=== PATIENT | male | born 1975 | race Caucasian/White ===

== ENCOUNTER → 2017-01-08 | Outpatient (REF) | LOC: WSOH 08:00 | DX: Z02.89 Encounter for other administrative examinations (principal) ==

== ENCOUNTER 2017-08-13 12:49 | Inpatient (IN) | payer BC ==
[~2017-08-13] VITALS: Ht 182.9 cm; Wt 103.5 kg
[2017-08-28] VITALS (10 sets, daily range): BP systolic 111–141; BP diastolic 70–96; PULSE 87–116; TEMP 97.7–98.9
[2017-08-28] MEDS ORDERED: DILTIAZEM 180 MG PO (11:40)
[2017-08-28] MEDS ORDERED: MASON NATURAL2000 IU PO (12:04)
[2017-08-29 01:46] VITALS: BP 120/66; PULSE 106; TEMP 98.2
[2017-08-29 05:31] VITALS: BP 113/64; PULSE 101; PULSE 114; TEMP 98.5
[2017-08-29 06:30] LABS: HEMOGLOBIN 14.2 g/dl (13.5-18.0)
[2017-08-29 06:46] LABS: CREATININE, serum 0.96 mg/dL (0.66-1.25); POTASSIUM 4.2 mmol/L (3.4-5.0)
[2017-08-29] MEDS ORDERED: CARDIZEM CD 18180 MG PO (08:30)
[2017-08-29 09:29] VITALS: BP 103/56; PULSE 113; TEMP 98
[2017-08-29 13:17] VITALS: BP 106/63; PULSE 114; TEMP 98.6
[2017-08-29 18:02] VITALS: BP 108/66; PULSE 103; TEMP 98.2
[2017-08-29 22:46] VITALS: BP 114/66; PULSE 108; TEMP 98.3
[2017-08-30 05:07] VITALS: BP 101/56; PULSE 103; TEMP 97.8
[2017-08-30 08:30] VITALS: BP 120/75; PULSE 101; TEMP 97.8
[2017-08-30 12:12] VITALS: BP 117/79; PULSE 102; TEMP 98.2
[2017-08-30] MEDS ORDERED: ROXICODONE 55 MG/TAB PO (15:00)
== END 2017-08-30 15:30 | disposition home or self-care (01) | DRG 331 ==
LOC: INPTSU 08-28 09:56 → SURG 08-28 13:30
PROVIDERS: Surgery
PROC: 8E0W4CZ Robotic Assisted Procedure of Trunk Region, Percutaneous Endoscopic Approach (ICD-10-PCS; 2017-08-28)
PROC: 0DTN4ZZ Resection of Sigmoid Colon, Percutaneous Endoscopic Approach (ICD-10-PCS; principal; 2017-08-28 13:30)
DX: K57.32 Diverticulitis of large intestine without perforation or abscess without bleeding (principal); Z85.72 Personal history of non-Hodgkin lymphomas
CPT/HCPCS: A4314; A9284; J0330; J0690; J1170; J1650; J1885; J2405; J2704; J2710; J2765; J3010; J7042; J7120

== ENCOUNTER → 2017-11-17 | Outpatient (CLI) | payer BC ==
[~2017-11-17] MED LIST: CARDIZEM CD 18180 MG PO; DILTIAZEM 180 MG PO; MASON NATURAL2000 IU PO; ROXICODONE 55 MG/TAB PO
[2017-11-17 15:08] LABS: SYNOVIAL FL. MONONUCLEAR 8.1 % (0-75); SYNOVIAL FLUID RBC 266000 /mm3 (0-0); SYNOVIAL FLUID WBC 141163 /mm3 (200-600)
[2017-11-17 17:11] LABS: SYNOVIAL FLUID APPEARANCE TURBID; SYNOVIAL FLUID COLOR PINK
== END ==
LOC: ZCOL.LAB 14:19
PROVIDERS: Physician Assistant
DX: S89.81XA Other specified injuries of right lower leg, initial encounter (principal)

== ENCOUNTER 2017-11-18 08:10 | Day surgery (SDC) | payer BC ==
[2017-11-18] VITALS (11 sets, daily range): BP systolic 100–121; BP diastolic 66–83; PULSE 70–111; TEMP 97.5–98.1
[~2017-11-18] VITALS: Ht 182.9 cm; Wt 98.8 kg
[2017-11-19 02:02] VITALS: BP 127/45; PULSE 89; TEMP 98.2
[2017-11-19 05:44] VITALS: BP 135/77; PULSE 100; TEMP 98
[2017-11-19 07:22] VITALS: BP 118/74; PULSE 98; TEMP 98.1
[2017-11-19 11:15] VITALS: BP 118/75; PULSE 111; TEMP 97.5
[2017-11-19] MEDS ORDERED: NORCO 325 MG-51 TAB PO (12:55)
[2017-11-19] MEDS ORDERED: BACTRIM DS 8001 TAB PO (12:55)
[2017-11-19] MEDS ORDERED: MONODOX100 PO (12:56)
== END 2017-11-19 14:12 | disposition home or self-care (01) ==
LOC: SDCO 08:10 → SURG 12:40 → SDCO 11-19 14:12
DX: M71.162 Other infective bursitis, left knee (principal); Z85.72 Personal history of non-Hodgkin lymphomas; Z87.891 Personal history of nicotine dependence; Z68.29 Body mass index [BMI] 29.0-29.9, adult; Z88.0 Allergy status to penicillin; Z88.8 Allergy status to other drugs, medicaments and biological substances; Z92.21 Personal history of antineoplastic chemotherapy
CPT/HCPCS: OP; J0690; J1100; J1170; J2405; J2704; J3010; J7120

== ENCOUNTER 2018-06-06 18:53 | Emergency (ER) | payer BC ==
[~2018-06-06] VITALS: Ht 182.9 cm; Wt 106.8 kg
[~2018-06-06 18:53] MED LIST changes: +BACTRIM DS 8001 TAB PO; +MONODOX100 PO; +NORCO 325 MG-51 TAB PO
[2018-06-06 19:08] VITALS: TEMP 98.8
[2018-06-06 19:56] LABS: BASO % 0.4 % (0.0-2.0); EOS % 0.5 % (0-4.0); GRAN # 5.3 (1.4-6.5); GRAN % 71.5 % (42.2-75.2); HEMATOCRIT 44.9 % (42.0-52.0); HEMOGLOBIN 15.5 g/dl (13.5-18.0); LYMPH # 1.4 (1.2-3.4); LYMPH % 19.1 % (20.0-51.0); MEAN CELL VOLUME 78 fl (80.0-100.0); MEAN CORPUSCULAR HEMOGLOBIN 27 pg (27.0-31.0); MEAN CORPUSCULAR HGB CONC 35 g/dl (33.0-37.0); MEAN PLATELET VOLUME 12.2 fl (7.4-10.4); MONO # 0.6 (0.1-0.6); MONO % 8.1 % (1.7-9.3); PLATELET COUNT 155 K/mm3 (130-400); RED BLOOD COUNT 5.74 M/mm3 (4.20-5.60); REDCELL DISTRIBUTION WIDTH-CV 12.5 % (11.5-14.5)
[2018-06-06 20:15] LABS: ALANINE AMINOTRANSFERASE 52 U/L (21-72); ALBUMIN 4.2 gm/dL (3.5-5.0); ALKALINE PHOSPHATASE 69 U/L (50-136); ANION GAP 13 mmol/L (7-16); AST,SGOT 47 U/L (15-37); BLOOD UREA NITROGEN 13 mg/dL (9-20); CALCIUM 9.1 mg/dL (8.4-10.2); CARBON DIOXIDE 23 mmol/L (22-30); CHLORIDE 104 mmol/L (98-107); CREATININE, serum 0.97 mg/dL (0.66-1.25); GLUCOSE 93 mg/dL (74-106); LIPASE 150 U/L (23-300); POTASSIUM 3.6 mmol/L (3.4-5.0); SODIUM 140 mmol/L (137-145); TOTAL PROTEIN 7.3 gm/dL (6.4-8.2)
[2018-06-06 20:26] LABS: TROPONIN-I < 0.012 ng/mL (0.000-0.034)
[2018-06-06] MEDS ORDERED: LOPRESSOR 225 MG/TAB PO (20:48)
[2018-06-06] MEDS ORDERED: ATIVAN 0.50.5 MG/TAB PO (20:48)
[2018-06-06] MEDS ORDERED: PROTONIX 40MG T40 MG PO (20:48)
[2018-06-06 20:57] VITALS: BP 122/85; PULSE 95
== END 2018-06-06 21:40 | disposition home or self-care (01) ==
LOC: COL.ER 18:53
PROVIDERS: Emergency Medicine
DX: F41.9 Anxiety disorder, unspecified (principal); R00.2 Palpitations; K21.9 Gastro-esophageal reflux disease without esophagitis

== ENCOUNTER 2018-06-25 07:09 | Day surgery (SDC) | payer BC ==
[2018-06-25] VITALS (11 sets, daily range): BP systolic 92–124; BP diastolic 42–76; PULSE 80–101; TEMP 97
[~2018-06-25] VITALS: Ht 183 cm; Wt 101.6 kg
[~2018-06-25 07:09] MED LIST changes: +ATIVAN 0.50.5 MG/TAB PO; +LOPRESSOR 225 MG/TAB PO; +PROTONIX 40MG T40 MG PO
[2018-06-25] MEDS ORDERED: ATIVAN 0.50.5 MG/TAB PO (07:48)
[2018-06-25] MEDS ORDERED: PROTONIX 40MG T40 MG PO (07:50)
[2018-06-25] MEDS ORDERED: ASPIRIN E.C. 8181 MG PO (07:51)
[2018-06-25] MEDS ORDERED: LOPRESSOR 225 MG/TAB PO (07:51)
[2018-06-25] MEDS ORDERED: NITROSTAT0.4 MG/TAB SL (07:52)
[2018-06-25 08:20] LABS: HEMATOCRIT 46.8 % (42.0-52.0); HEMOGLOBIN 15.8 g/dl (13.5-18.0); MEAN CELL VOLUME 79 fl (80.0-100.0); MEAN CORPUSCULAR HEMOGLOBIN 27 pg (27.0-31.0); MEAN CORPUSCULAR HGB CONC 34 g/dl (33.0-37.0); PLATELET COUNT 147 K/mm3 (130-400); RED BLOOD COUNT 5.94 M/mm3 (4.20-5.60); REDCELL DISTRIBUTION WIDTH-CV 12.3 % (11.5-14.5)
[2018-06-25 08:24] LABS: INR 1.1 (0.8-3.0); PROTHROMBIN TIME 12.6 SECONDS (9.7-12.8)
[2018-06-25 08:30] LABS: CALCIUM 9.5 mg/dL (8.4-10.2); CREATININE, serum 0.98 mg/dL (0.66-1.25); POTASSIUM 4.1 mmol/L (3.4-5.0)
[2018-06-25] MEDS ORDERED: TOPROL XL 50MG50 MG PO (11:45)
== END 2018-06-25 13:50 | disposition home or self-care (01) ==
LOC: COL.CAR 07:09
PROVIDERS: Internal Medicine Cardiovascular Disease
DX: I25.10 Atherosclerotic heart disease of native coronary artery without angina pectoris (principal); R94.39 Abnormal result of other cardiovascular function study; I34.0 Nonrheumatic mitral (valve) insufficiency; E78.2 Mixed hyperlipidemia; I42.8 Other cardiomyopathies; F41.8 Other specified anxiety disorders; Z85.72 Personal history of non-Hodgkin lymphomas; Z92.21 Personal history of antineoplastic chemotherapy; Z92.3 Personal history of irradiation; Z88.8 Allergy status to other drugs, medicaments and biological substances; Z88.0 Allergy status to penicillin; Z82.49 Family history of ischemic heart disease and other diseases of the circulatory system; Z83.3 Family history of diabetes mellitus
CPT/HCPCS: C1769; J1644; J2250; J3010; Q9967

== ENCOUNTER 2019-03-19 04:24 | Emergency (ER) | payer BC ==
[~2019-03-19] VITALS: Ht 182.9 cm; Wt 90.9 kg
[~2019-03-19 04:24] MED LIST changes: +ASPIRIN E.C. 8181 MG PO; +NITROSTAT0.4 MG/TAB SL; +TOPROL XL 50MG50 MG PO
[2019-03-19 04:47] VITALS: TEMP 97.6
[2019-03-19 04:58] LABS: BASO # 0.1 (0.0-0.2); BASO % 0.8 % (0.0-2.0); EOS # 0.2 (0.0-0.7); EOS % 1.5 % (0-4.0); GRAN # 6.8 (1.4-6.5); GRAN % 62.2 % (42.2-75.2); HEMATOCRIT 47.1 % (42.0-52.0); HEMOGLOBIN 15.6 g/dl (13.5-18.0); LYMPH # 2.4 (1.2-3.4); LYMPH % 21.9 % (20.0-51.0); MEAN CELL VOLUME 77 fl (80.0-100.0); MEAN CORPUSCULAR HEMOGLOBIN 25 pg (27.0-31.0); MEAN CORPUSCULAR HGB CONC 33 g/dl (33.0-37.0); MEAN PLATELET VOLUME 12.5 fl (7.4-10.4); MONO # 1.4 (0.1-0.6); PLATELET COUNT 206 K/mm3 (130-400); RED BLOOD COUNT 6.15 M/mm3 (4.20-5.60); REDCELL DISTRIBUTION WIDTH-CV 13.1 % (11.5-14.5)
[2019-03-19 05:06] LABS: ALANINE AMINOTRANSFERASE 86 U/L (21-72); ALBUMIN 4.7 gm/dL (3.5-5.0); ALKALINE PHOSPHATASE 100 U/L (50-136); ANION GAP 14 mmol/L (7-16); AST,SGOT 51 U/L (15-37); BILIRUBIN,TOTAL 0.7 mg/dL (0.0-1.0); BLOOD UREA NITROGEN 20 mg/dL (9-20); CALCIUM 9.7 mg/dL (8.4-10.2); CARBON DIOXIDE 28 mmol/L (22-30); CHLORIDE 98 mmol/L (98-107); CREATININE, serum 1.13 (0.66-1.25); GLUCOSE 138 mg/dL (74-106); LIPASE 491 U/L (23-300); POTASSIUM 3.6 mmol/L (3.4-5.0); SODIUM 140 mmol/L (137-145); TOTAL PROTEIN 8.3 gm/dL (6.4-8.2)
[2019-03-19 05:08] LABS: C-REACTIVE PROTEIN < 0.5 mg/dL (0.0-0.9)
[2019-03-19] MEDS ORDERED: COREG 3.123.125 MG/T PO (05:40)
[2019-03-19] MEDS ORDERED: SINGULAIR 110 MG/TAB PO (05:41)
[2019-03-19] MEDS ORDERED: ALDACTONE 25MG25 M1 PO (05:41)
[2019-03-19] MEDS ORDERED: K-DUR20 MEQ PO (05:41)
[2019-03-19] MEDS ORDERED: DEMADEX 20MG20 M1 PO (05:41)
[2019-03-19] MEDS ORDERED: LANOXIN 0.25M0.25 MG PO (05:42)
[2019-03-19] MEDS ORDERED: ZOLOFT 50MG50 MG PO (05:42)
[2019-03-19 07:11] VITALS: BP 102/75; PULSE 93
== END 2019-03-19 07:31 | disposition home or self-care (01) ==
LOC: COL.ER 04:24
PROVIDERS: Emergency Medicine
DX: R10.10 Upper abdominal pain, unspecified (principal); I50.9 Heart failure, unspecified; R11.10 Vomiting, unspecified; Z87.891 Personal history of nicotine dependence; Z85.72 Personal history of non-Hodgkin lymphomas; Z79.82 Long term (current) use of aspirin
CPT/HCPCS: J2270; J2405; Q9967

== ENCOUNTER → 2019-03-26 | Outpatient (CLI) | payer BC ==
[~2019-03-26] MED LIST changes: +ALDACTONE 25MG25 M1 PO; +COREG 3.123.125 MG/T PO; +DEMADEX 20MG20 M1 PO; +K-DUR20 MEQ PO; +LANOXIN 0.25M0.25 MG PO; +SINGULAIR 110 MG/TAB PO; +ZOLOFT 50MG50 MG PO
== END ==
LOC: COL.RAD 03-25 10:30
DX: K76.0 Fatty (change of) liver, not elsewhere classified (principal)

== ENCOUNTER → 2019-05-28 | Outpatient (CLI) | payer BC ==
[~2019-05-28] MED LIST changes: +TYLENOL 500MG500 MG PO
== END ==
LOC: COL.RAD 08:17
DX: K82.0 Obstruction of gallbladder (principal); K81.9 Cholecystitis, unspecified
CPT/HCPCS: A9537; J2270

== ENCOUNTER 2021-07-21 21:11 | Observation (INO) | payer BC ==
[~2021-07-21] VITALS: Ht 182.9 cm; Wt 107.0 kg
[2021-07-21 22:32] LABS: BASO % 0.4 % (0.0-2.0); EOS # 0.1 K/mm3 (0.0-0.7); EOS % 0.9 % (0-4.0); GRAN # 5.4 K/mm3 (1.4-6.5); GRAN % 69.2 % (42.2-75.2); HEMATOCRIT 45.4 % (42.0-52.0); HEMOGLOBIN 14.8 g/dl (13.5-18.0); LYMPH # 1.7 K/mm3 (1.2-3.4); LYMPH % 21.7 % (20.0-51.0); MEAN CELL VOLUME 80 fl (80.0-100.0); MEAN CORPUSCULAR HEMOGLOBIN 26 pg (27.0-31.0); MEAN CORPUSCULAR HGB CONC 33 g/dl (33.0-37.0); MEAN PLATELET VOLUME 12.1 fl (7.4-10.4); MONO # 0.6 K/mm3 (0.1-0.6); MONO % 7.4 % (1.7-9.3); PLATELET COUNT 159 K/mm3 (130-400); RED BLOOD COUNT 5.71 M/mm3 (4.20-5.60); REDCELL DISTRIBUTION WIDTH-CV 12.8 % (11.5-14.5)
[2021-07-21 22:37] LABS: INR 1.2 (0.8-3.0); PROTHROMBIN TIME 13.3 SECONDS (9.7-12.8)
[2021-07-21 22:39] LABS: PARTIAL THROMBOPLASTIN TIME 27.8 SECONDS (26.0-37.0)
[2021-07-21 22:47] LABS: ALANINE AMINOTRANSFERASE 33 U/L (0-55); ALBUMIN 4.2 gm/dL (3.5-5.0); ALCOHOL(ethanol),MEDICAL < 10 mg/dL (0-10); ALKALINE PHOSPHATASE 88 U/L (0-750); ANION GAP 13 mmol/L (7-16); AST,SGOT 22 U/L (5-34); BILIRUBIN,TOTAL 0.8 mg/dL (0.2-1.2); BLOOD UREA NITROGEN 15 mg/dL (9-21); CALCIUM 9.6 mg/dL (8.4-10.2); CARBON DIOXIDE 24 mmol/L (22-29); CHLORIDE 101 mmol/L (98-107); CREATININE, serum 1.59 mg/dL (0.72-1.25); GLUCOSE 157 mg/dL (70-99); POTASSIUM 3.5 mmol/L (3.5-4.5); SODIUM 138 mmol/L (136-145); TOTAL PROTEIN 7.5 gm/dL (6.2-8.1)
[2021-07-21 22:56] LABS: TROPONIN-I < 0.010 ng/mL (0.00-0.033)
[2021-07-22 00:24] LABS: COLLECTION METHOD CLEAN CATCH
[2021-07-22 00:30] LABS: PH 5 (5-8); SQUAMOUS EPITHELIAL None Seen /hpf; URINE APPEARANCE Clear; URINE BACTERIA None Seen /hpf; URINE BILIRUBIN Negative (NEGATIVE); URINE BLOOD Negative (NEGATIVE); URINE COLOR Straw; URINE GLUCOSE Negative (NEGATIVE); URINE KETONE Negative (NEGATIVE); URINE LEUKOCYTE ESTERASE Negative (NEGATIVE); URINE NITRATE Negative (NEGATIVE); URINE PROTEIN(semi-quant) Negative (NEGATIVE); URINE RBC 0-2 /hpf; URINE UROBILINOGEN Negative (NEGATIVE); URINE WBC None Seen /hpf
[2021-07-22 00:49] LABS: TRICYCLIC ANTIDEPRESS URINE NEGATIVE
--- NOTE | 2021-07-22 01:49 | NUR ---
Patient arrived to the unit by wheelchair, alert and oriented x 4, he is able to walk by himself, independent. No pain, nausea or vomiting, but dizziness. Tele in place.
[2021-07-22] MEDS ORDERED: CORLANOR5 MG PO (02:01)
[2021-07-22 02:04] VITALS: BP 113/72; PULSE 105; TEMP 98.2
[2021-07-22 05:10] VITALS: BP 128/76; PULSE 102; TEMP 98.2
--- NOTE | 2021-07-22 07:07 | NUR ---
Patient has had an active night. He is cooperative with the meds administration. No further complains of dizziness. VSS, tele in place. Shift report given to day nurse.
[2021-07-22 08:07] LABS: BASO % 0.5 % (0.0-2.0); EOS % 0.5 % (0-4.0); GRAN # 3.9 K/mm3 (1.4-6.5); GRAN % 59.9 % (42.2-75.2); HEMATOCRIT 44.2 % (42.0-52.0); HEMOGLOBIN 14.3 g/dl (13.5-18.0); LYMPH # 1.9 K/mm3 (1.2-3.4); LYMPH % 29.9 % (20.0-51.0); MEAN CELL VOLUME 81 fl (80.0-100.0); MEAN CORPUSCULAR HEMOGLOBIN 26 pg (27.0-31.0); MEAN CORPUSCULAR HGB CONC 32 g/dl (33.0-37.0); MEAN PLATELET VOLUME 12.5 fl (7.4-10.4); MONO # 0.6 K/mm3 (0.1-0.6); MONO % 8.7 % (1.7-9.3); PLATELET COUNT 143 K/mm3 (130-400); RED BLOOD COUNT 5.44 M/mm3 (4.20-5.60); REDCELL DISTRIBUTION WIDTH-CV 12.9 % (11.5-14.5)
[2021-07-22 08:20] LABS: CALCIUM 9.7 mg/dL (8.4-10.2); CREATININE, serum 1.18 mg/dL (0.72-1.25); MAGNESIUM 2.6 mg/dL (1.6-2.6); POTASSIUM 3.8 mmol/L (3.5-4.5)
[2021-07-22 08:22] VITALS: BP 132/88; PULSE 97; TEMP 97.6
--- NOTE | 2021-07-22 08:38 | NUR ---
Pt awake upon entry, no C/O pain at this time. Shift assessment complete, left Pt call light in reach, bed in lowest position.
[2021-07-22 11:16] VITALS: BP 125/82; PULSE 88; TEMP 97.5
--- NOTE | 2021-07-22 15:36 | NUR ---
Plans to return home with [place] ([phone], Brother Jed is alternative . PCP is Dr. Garcia, other specialist are Dr. Castillo, [facility]. [facility], and Dr Jed Lock in [place]. Patient reports that he uses [facility] for medicaitons and has a pacemaker. Patient denies having any concerns about care at this time. Patient denies any other DME or HHS use. Educated on services with case management. Will follow.
[2021-07-22 16:49] VITALS: BP 122/81; PULSE 98; TEMP 98.1
[2021-07-22] MEDS ORDERED: PLAVIX 75MG TAB75 MG PO (18:22)
--- NOTE | 2021-07-22 20:21 | NUR ---
Patient is laying in bed, alert and oriented x 4, reports no dizziness, nausea, vomiting, pain. VSS, Tele in place. Discharge paperwork provided, all questions ansewered.
== END 2021-07-22 20:15 | disposition home or self-care (01) ==
LOC: COL.ER 21:11 → MEDICAL 07-22 00:04
PROVIDERS: Student in an Organized Health Care Education/Training Program; ADMIT Internal Medicine
DX: G45.9 Transient cerebral ischemic attack, unspecified (principal); I63.9 Cerebral infarction, unspecified; R42 Dizziness and giddiness; I50.20 Unspecified systolic (congestive) heart failure; T45.1X5A Adverse effect of antineoplastic and immunosuppressive drugs, initial encounter; N17.9 Acute kidney failure, unspecified; N18.9 Chronic kidney disease, unspecified; E87.6 Hypokalemia; E72.51 Non-ketotic hyperglycinemia; C85.90 Non-Hodgkin lymphoma, unspecified, unspecified site; F32.9 Major depressive disorder, single episode, unspecified; Z94.84 Stem cells transplant status; Z95.0 Presence of cardiac pacemaker; Z79.82 Long term (current) use of aspirin; Z79.899 Other long term (current) drug therapy
CPT/HCPCS: 99222-AI; 99223-AI; G0378; J1644; J1815; J3475; Q9967

== ENCOUNTER → 2021-12-12 | Outpatient (CLI) | payer BC ==
[~2021-12-12] MED LIST changes: +CORLANOR5 MG PO; +PLAVIX 75MG TAB75 MG PO
== END ==
LOC: COL.RAD 12:27
DX: D17.24 Benign lipomatous neoplasm of skin and subcutaneous tissue of left leg (principal)

== ENCOUNTER 2023-11-16 13:03 | Emergency (ER) | payer BC ==
[~2023-11-16] VITALS: Ht 182.9 cm; Wt 112.7 kg
[2023-11-16 13:09] VITALS: TEMP 97.4
[2023-11-16 13:40] LABS: BASO % 0.5 % (0.0-2.0); EOS # 0.1 K/mm3 (0.0-0.7); EOS % 0.8 % (0.0-4.0); GRAN # 4.8 K/mm3 (1.4-6.5); HEMATOCRIT 49.2 % (42.0-52.0); HEMOGLOBIN 16.1 g/dl (13.5-18.0); LYMPH # 1.8 K/mm3 (1.2-3.4); LYMPH % 22.9 % (20.0-51.0); MEAN CELL VOLUME 81 fl (80.0-100.0); MEAN CORPUSCULAR HEMOGLOBIN 27 pg (27-31); MEAN CORPUSCULAR HGB CONC 33 g/dl (33.0-37.0); MEAN PLATELET VOLUME 11.8 fl (7.4-10.4); MONO % 13.4 % (1.7-9.3); PLATELET COUNT 160 K/mm3 (130-400); RED BLOOD COUNT 6.05 M/mm3 (4.20-5.60); REDCELL DISTRIBUTION WIDTH-CV 12.6 % (11.5-14.5)
[2023-11-16 13:58] LABS: ALANINE AMINOTRANSFERASE 45 U/L (0-55); ALBUMIN 4.1 gm/dL (3.5-5.0); ALKALINE PHOSPHATASE 85 U/L (40-150); ANION GAP 11 mmol/L (7-16); AST,SGOT 35 U/L (5-34); BLOOD UREA NITROGEN 12 mg/dL (9-21); CALCIUM 9.9 mg/dL (8.4-10.2); CARBON DIOXIDE 21 mmol/L (22-29); CHLORIDE 102 mmol/L (98-107); CREATININE, serum 1.13 mg/dL (0.72-1.25); GLUCOSE 100 mg/dL (70-99); POTASSIUM 3.9 mmol/L (3.5-4.5); SODIUM 134 mmol/L (136-145); TOTAL PROTEIN 7.7 gm/dL (6.2-8.1)
[2023-11-16 14:02] LABS: INR 1.3 (0.8-3.0); PROTHROMBIN TIME 14.1 SECONDS (9.7-12.8)
[2023-11-16 14:11] LABS: TROPONIN-I < 0.010 ng/mL (0.00-0.033)
[2023-11-16] MEDS ORDERED: TUSS PO (14:28)
[2023-11-16] MEDS ORDERED: ZITHROMAX Z PA250 MG PO (14:28)
[2023-11-16 14:37] VITALS: BP 115/88; PULSE 98
[2023-11-16 15:33] LABS: BILIRUBIN,TOTAL 1.4 mg/dL (0.2-1.2)
== END 2023-11-16 14:42 | disposition home or self-care (01) ==
LOC: COL.ER 13:03
PROVIDERS: Family Medicine
DX: J40 Bronchitis, not specified as acute or chronic (principal); Z88.0 Allergy status to penicillin